=== PATIENT | female | born 1970 | race African-American/Black ===

== ENCOUNTER 2025-02-27 19:04 | Emergency (ER) | payer SELFPAY ==
[~2025-02-27] VITALS: Ht 165.1 cm; Wt 117.9 kg
[2025-02-27 19:58] VITALS: PULSE 79; RESP 18; TEMP 98.1
[2025-02-27 20:08] LABS: BASOPHILS % 0.3 % (0.0-1.0); EOSINOPHILS % 1.8 % (0.0-6.0); LYMPHOCYTES % 51.8 % (18.0-39.1); MONOCYTES % 9.6 % (4.4-11.3); NEUTROPHILS % 36.3 % (38.7-80.0); RED CELL DISTRIBUTION WIDTH 17.7 % (11.7-14.4)
[2025-02-27] MEDS: SODIUM CHLORIDE 0.9% 1000ML 1,000 ML IV STA (20:18)
[2025-02-27 20:32] LABS: EST GLOMERULAR FILTRATION RATE 103.0 ML/MIN (>=60)
[2025-02-27 20:42] LABS: STREPTOCOCCUS GRP A ANTIGEN NEGATIVE (NEGATIVE)
[2025-02-27 20:48] LABS: CORONAVIRUS COVID-19 AG NEGATIVE (NEGATIVE)
[2025-02-27] MEDS: HYDRALAZINE HCL 20 MG/ML VIAL IV STA (21:53)
[2025-02-27] MEDS ORDERED: PREDNISONE20 MG PO (23:20)
[2025-02-27] MEDS ORDERED: AMOX TR-K CLV1 EAC2 PO (23:20)
[2025-02-27 23:34] VITALS: BP 157/95; O2SAT 99
== END 2025-02-27 23:33 | disposition home or self-care (01) ==
LOC: ER 19:06
DX: M54.2 Cervicalgia (principal); I16.0 Hypertensive urgency; R11.2 Nausea with vomiting, unspecified; R19.7 Diarrhea, unspecified; I10 Essential (primary) hypertension; R53.81 Other malaise; Z11.52 Encounter for screening for COVID-19; R94.31 Abnormal electrocardiogram [ECG] [EKG]
CPT/HCPCS: 36415; 70490; 71045; 80053; 82550; 83518; 83690; 83880; 84484; 85025; 87070; 87426; 93005; 99284; J0360; J7030